=== PATIENT | female | born 1960 | race Caucasian/White ===

== ENCOUNTER 2017-06-10 13:03 | Emergency (ER) | payer MEDICAID ==
[~2017-06-10] VITALS: Ht 152.4 cm; Wt 77.0 kg
[~2017-06-10 13:03] MED LIST: ALBU18HF2 IH; ASPI-1159 PO; ATOR20TA65 PO; GABA-531 PO; TIOT18CA3 IH; ZOLP5TAB2 PO
[2017-06-10] MEDS ORDERED: KETOROLAC 30MG/ML VIAL IM ONE (16:45)
[2017-06-10] MEDS ORDERED: CYCLOBENZAPRINE 10MG TABLET PO ONE (16:45)
[2017-06-10 18:34] VITALS: BP 112/78
[2017-06-10 19:24] LABS: CLARITY URINE CLEAR (CLEAR); COLOR URINE YELLOW (YELLOW); KETONES URINE NEGATIVE (NEGATIVE); LEUKOCYTE ESTERASE URINE TRACE (NEGATIVE); NITRITE URINE NEGATIVE (NEGATIVE); OCCULT BLOOD URINE NEGATIVE (NEGATIVE); PH URINE 5.5 (4.5-8.0); PROTEIN URINE NEGATIVE (NEGATIVE); SPECIFIC GRAVITY URINE 1.016 (1.005-1.030)
== END 2017-06-10 20:20 | disposition home or self-care (01) ==
LOC: ER 13:37
DX: M54.5 Low back pain (principal); G89.29 Other chronic pain; J44.9 Chronic obstructive pulmonary disease, unspecified; I10 Essential (primary) hypertension; F17.200 Nicotine dependence, unspecified, uncomplicated; E66.01 Morbid (severe) obesity due to excess calories; Z79.82 Long term (current) use of aspirin; Z88.6 Allergy status to analgesic agent; Z68.33 Body mass index [BMI] 33.0-33.9, adult; Z88.5 Allergy status to narcotic agent; Z90.710 Acquired absence of both cervix and uterus; Z90.49 Acquired absence of other specified parts of digestive tract; Z85.43 Personal history of malignant neoplasm of ovary
CPT/HCPCS: 72100; 81003; 96372; 99285; J1885; Z7610

== ENCOUNTER 2020-12-13 21:22 | Emergency (ER) | payer MEDICAID ==
[~2020-12-13 21:22] MED LIST changes: -ASPI-1159 PO; +ASPI-1497 PO; -GABA-531 PO; +GABA-532 PO
== END 2020-12-13 22:10 | disposition left against medical advice (07) ==
LOC: ER 21:22
DX: Z53.21 Procedure and treatment not carried out due to patient leaving prior to being seen by health care provider (principal)